=== PATIENT | male | born 1985 | race African-American/Black ===

== ENCOUNTER 2021-06-13 16:37 | Emergency (ER) | payer MEDICAID, OTHER ==
[~2021-06-13] VITALS: Ht 170.2 cm; Wt 73.6 kg
[2021-06-13] MEDS ORDERED: ACETAMINOPHEN 1000 MG/ISO-OSM 100 ML IV ONE (17:45)
[2021-06-13] MEDS ORDERED: ONDANSETRON HCL 4 MG/2 ML VIAL IVP ONE (17:45)
[2021-06-13] MEDS ORDERED: SODIUM CHLORIDE 0.9% 2,200 ML IV ONE (17:45)
[2021-06-13] MEDS ORDERED: 0.9% SODIUM CHLORIDE 10 ML SYRINGE IVP PRN (17:45)
[2021-06-13 17:46] LABS: BASOPHILS % (AUTO) 0.5 % (0.0-2.0); EOSINOPHILS % (AUTO) 0 % (1.0-6.0); HEMATOCRIT 42.8 % (41-53); HEMOGLOBIN 14.6 g/dL (13.5-17.5); LYMPHOCYTES % (AUTO) 14.6 % (22.0-44.0); MEAN CORPUSCULAR HEMOGLOBIN 30.4 pg (26.0-34.0); MEAN CORPUSCULAR HGB CONC 34.2 G/dL (31.0-37.0); MEAN CORPUSCULAR VOLUME 89 fL (80-100); MONOCYTES # (AUTO) 0.5 K/uL (0.1-1.0); MONOCYTES % (AUTO) 7.6 % (2.0-9.0); NEUTROPHILS % (AUTO) 77.3 % (40.0-70.0); PLATELET COUNT (AUTO) 256 K/uL (150-450); RED BLOOD CELL COUNT(AUTO) 4.82 MIL/uL (4.50-5.90); RED CELL DISTRIBUTION WIDTH 12.8 % (11.5-14.5)
[2021-06-13 18:05] LABS: ANION GAP 4 mmol/L (8-16); CARBON DIOXIDE 30 mmol/L (22-29); CHLORIDE 98 mmol/L (98-107); CREATININE 1.12 mg/dL (0.60-1.30); GLOMERULAR FILTR. RATE CALC > 60 mL/min (>60); GLUCOSE,RANDOM 96 mg/dL (70-110); POTASSIUM 3.7 mmol/L (3.5-5.1); SODIUM SERUM 132 mmol/L (136-145); UREA NITROGEN, BLOOD 11 mg/dL (7-18)
[2021-06-13] MEDS ORDERED: IOHEXOL 350 MG/ML 75 ML VIAL ONE (18:21)
[2021-06-13] MEDS ORDERED: SODIUM CHLORIDE 0.9% 100 ML ONE (18:21)
[2021-06-13 18:22] LABS: B-TYPE NATRIURETIC PEPTIDE 29 pg/mL (0-100)
[2021-06-13 18:26] LABS: COVID AG,FIA SOURCE NASOPHARYNGEAL
[2021-06-13 18:26] LABS: ALANINE AMINOTRANSFERASE 20 U/L (12-78); ALKALINE PHOSPHATASE 60 U/L (46-116); ASPARTATE AMINOTRANSFERASE 20 U/L (15-37); BILIRUBIN,TOTAL 0.3 mg/dL (0.1-1.0); C-REACTIVE PROTEIN QUANT 3.19 mg/dL (0.00-0.30); CREATINE KINASE, TOTAL ONLY 275 U/L (39-308); FERRITIN 165 ng/mL (26-388); TOTAL PROTEIN, SERUM 7.9 g/dL (6.4-8.2)
[2021-06-13 18:27] LABS: D-DIMER 0.48 mg/L FEU (0.00-0.50); INR 1.1 (0.9-1.1); PROTHROMBIN TIME 11.4 SEC (9.4-11.6)
[2021-06-13 18:36] LABS: LACTIC ACID 0.5 mmol/L (0.4-2.0)
[2021-06-13 18:56] LABS: RAPID GROUP A STREP NEGATIVE (NEGATIVE)
[2021-06-13 18:58] LABS: INFLUENZA TYPE A NEGATIVE FOR TYPE A (NEGATIVE); INFLUENZA TYPE B NEGATIVE FOR TYPE B (NEGATIVE)
[2021-06-13] MEDS ORDERED: AMPICILLIN SODIUM/SULBACTAM NA 3 GM in SODIUM CHLORIDE 0.9% 100 ML IV ONE (20:45)
[2021-06-14 02:44] VITALS: BP 106/58
== END 2021-06-14 02:54 | disposition short-term general hospital (02) ==
LOC: EMS 16:41
DX: I88.8 Other nonspecific lymphadenitis (principal); R50.9 Fever, unspecified; F12.90 Cannabis use, unspecified, uncomplicated; F17.210 Nicotine dependence, cigarettes, uncomplicated; Z20.822 Contact with and (suspected) exposure to COVID-19
CPT/HCPCS: 70450; 70491; 71045; 80053; 82550; 82728; 83605; 83880; 84145; 84484; 85025; 85379; 85610; 86140; 87040; 87426; 87430; 87804; 93005; 96365; 96375; 99285; J0131; J0295; J2405; J7030; J7050; Q9967; U0003